=== PATIENT | male | born 2000 | race Caucasian/White ===

== ENCOUNTER 2025-03-01 18:14 | Emergency (ER) | payer OTHER ==
[~2025-03-01] VITALS: Ht 172.7 cm; Wt 72.6 kg
[2025-03-01 18:16] VITALS: BP 124/71; TEMP 98.4; O2SAT 98
== END 2025-03-01 19:26 | disposition home or self-care (01) ==
LOC: ER 18:21
DX: M79.641 Pain in right hand (principal); M25.531 Pain in right wrist
CPT/HCPCS: 73110; 73130-TC